=== PATIENT | female | born 1965 | race Caucasian/White ===

== ENCOUNTER 2017-01-15 10:18 | Outpatient (CLI) ==
--- NOTE | 2017-01-15 11:43 | DI ---
Exam: Two x-rays of the chest. Comparison: None available. Reason for exam: Upper respiratory infection. FINDINGS: No pneumothorax, pleural effusion, or focal consolidation. The cardiac silhouette is not enlarged. The imaged osseous structures appear grossly unremarkable without acute fracture. Impression: No acute cardiopulmonary process.
== END 2017-01-15 10:19 | disposition home or self-care (01) ==
LOC: RAD 10:18
PROVIDERS: ATTEND Emergency Medicine
DX: J06.9 Acute upper respiratory infection, unspecified (principal)

== ENCOUNTER 2017-01-21 12:21 | Outpatient (CLI) ==
--- NOTE | 2017-01-22 10:23 | MAMMO ---
EXAM: Bilateral digital screening mammogram (2-D and 3-D) History: Screening Comparison: Bilateral mammogram 05/26/2011 Findings: MLO and CC views of bilateral breasts demonstrate scattered fibroglandular breast parenchy ma. CAD was reviewed by the radiologist. Tomosynthesis was performed. There are no dominant masses , no suspicious microcalcifications and no architectural distortions Impression: Stable negative mammogram. Recommend followup routine screening mammography in 1 year. BIRADS 1
== END 2017-01-21 12:22 | disposition home or self-care (01) ==
LOC: RAD 12:21
PROVIDERS: ATTEND Advanced Practice Midwife
DX: Z12.31 Encounter for screening mammogram for malignant neoplasm of breast (principal)
CPT/HCPCS: 77067

== ENCOUNTER 2017-03-27 13:44 | Emergency (ER) ==
[2017-03-27 14:11] LABS: BASOPHILS % (AUTO) 0.2 % (0.0-3.0); EOSINOPHILS % (AUTO) 0.1 % (0.0-7.0); HEMATOCRIT 40.9 % (37.0-47.0); HEMOGLOBIN 14.2 g/dl (12.0-16.0); IMMATURE GRANULOCYTE % (AUTO) 0.6 % (0.0-5.0); LYMPHOCYTES # (AUTO) 1.2 K/uL (0.60-3.4); LYMPHOCYTES % (AUTO) 9.7 (10.0-50.0); MEAN CORPUSCULAR HEMOGLOBIN 30.7 pg (27.0-31.0); MEAN CORPUSCULAR HGB CONC 34.7 (31.8-35.4); MEAN CORPUSCULAR VOLUME 88.5 fl (81.0-99.0); MONOCYTES # (AUTO) 0.5 K/uL (0.4-2.0); MONOCYTES % (AUTO) 4.2 (0-10); NEUTROPHILS # (AUTO) 10.6 K/ul (2.0-6.9); NEUTROPHILS % (AUTO) 85.2; PLATELET COUNT 325 10^3/uL (140-440); RED BLOOD COUNT 4.62 10^6/ul (4.20-5.40); WHITE BLOOD COUNT 12.44 K/ul (4.6-10.2)
--- NOTE | 2017-03-27 14:18 | DI ---
EXAM: CHEST FRONTAL VIEW HISTORY: Chest pain. COMPARISON: 01/15/2017 FINDINGS: Heart size and mediastinum remain within normal limits. Newly developed left base densit y. Lungs are otherwise clear. No visible pleural fluid, vascular congestion or pneumothorax. No ac king salmon bony deformity. IMPRESSION: Mild density in the left base could represent atelectasis or pneumonia.
[2017-03-27] MEDS ORDERED: TORADOL IVP STA (14:24)
[2017-03-27] MEDS ORDERED: SOLU-MEDROL 125 MG IVP STA (14:24)
[2017-03-27 14:26] VITALS: BP 161/85; TEMP 98.6; BMI 34.7
[2017-03-27 14:34] LABS: ALANINE AMINOTRANSFERASE 28 U/L (12-78); ALBUMIN 3.4 g/dL (3.4-5.0); ALBUMIN/GLOBULIN RATIO 0.92; ALKALINE PHOSPHATASE 76 U/L (42-98); ASPARTATE AMINO TRANSFERASE 16 U/L (15-37); BILIRUBIN,TOTAL 0.41 mg/dL (0.00-1.20); BLOOD UREA NITROGEN 16 mg/dL (7-18); BUN/CREATININE RATIO 22.85; CALCIUM 9.4 mg/dL (8.2-10.2); CARBON DIOXIDE 20 mmol/L (21-32); CHLORIDE 111 mmol/L (98-107); CREATINE KINASE 54 U/L; GLUCOSE 121 mg/dL (70-110); SODIUM 142 mmol/L (136-145); TOTAL PROTEIN 7.1 g/dL (6.4-8.2)
--- NOTE | 2017-03-27 15:09 | ED.PDOC ---
General ED Provider: Dr. MIHIR CLOUD Chief Complaint: Chest Pain Stated Complaint: Patient is a 51 year old female who comes to the ER with onset mild left upper chest pain for the past 3 days. She felt like pulled muscle and has had intermittent pain but became worse last night. Time Seen by Physician: 14:00 Mode of Arrival: Walk-In Information Source: Patient Exam Limitations: No limitations [facility] T[facility] Documentation Reviewed and Agree: Yes Review of Systems - Review Of Systems Constitutional: Reports: No symptoms Eyes: Reports: No symptoms Ears, Nose, Mouth, Throat: Reports: No symptoms Respiratory: Reports: Short of air Cardiac: Reports: Chest pain GI: Reports: No symptoms : Reports: No symptoms Musculoskeletal: Reports: No symptoms Skin: Reports: No symptoms Neurological: Reports: No symptoms Endocrine: Reports: No symptoms Hematologic/Lymphatic: Reports: No symptoms All Other Systems: Reviewed and Negative Past Medical History - Past Medical History Previously Healthy: Yes Endocrine: Reports: None Cardiovascular: Reports: None Respiratory: Reports: None Hematological: Reports: None Gastrointestinal: Reports: None Genitourinary: Reports: None Neuro/Psych: Reports: None Musculoskeletal: Reports: None Cancer: Reports: None 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 - Surgical History General Surgical History: Reports: Hysterectomy, Cholecystectomy - Family History Family History: Reports: None - Social History Smoking Status: Former smoker Hx Substance Use: No Alcohol Screening: Occasionally Physical Exam - Physical Exam Appearance: Ill-appearing, Obese Ill-appearing: Moderate Pain Distress: Severe Neck: Supple Respiratory: Airway patent, Breath sounds clear, Breath sounds equal, Respirations nonlabored Cardiovascular: RRR, Pulses normal, No rub, No murmur GI/: Soft, Nontender, No masses, Bowel sounds normal, No Organomegaly Musculoskeletal: Normal strength, ROM intact, No edema, No calf tenderness Skin: Warm, Dry, Normal color Psychiatric: Anxious Interpretation - Radiology Interpretation Radiology Interpretation By: Radiologist Radiology Results: Positive Exam Interpreted: Portable CXR (mild density at the base could be atelectasis vs Pneumonia ) - Photographs Curator Rate: Normal Rhythm: Sinus - EKG Interpretation Time of EKG #1: 13:53 Rate: Normal Rhythm: Sinus Ectopy: None [place]: NL Interpretation: Normal sinus Critical Care Note - Critical Care Note Total Time (mins): 0 Course - Course Hematology/Chemistry: 03/27/17 14:05 03/27/17 14:05 Orders, Labs, Meds: Lab Review 03/27/17 03/27/17 14:05 14:05 WBC 12.44 H RBC 4.62 Hgb 14.2 Hct 40.9 MCV 88.5 MCH 30.7 MCHC 34.7 RDW Coeff of Reva 12.8 Plt Count 325 Immature Gran % (Auto) 0.6 Neut % (Auto) 85.2 Lymph % (Auto) 9.7 L Wheeler % (Auto) 4.2 Eos % (Auto) 0.1 Baso % (Auto) 0.2 Immature Gran # (Auto) 0.1 Neut # 10.6 H Lymph # 1.2 Wheeler # 0.5 Eos # 0.0 Baso # 0.0 Sodium 142 Potassium 4.0 Chloride 111 H Carbon Dioxide 20 L Anion Gap 15.0 BUN 16 Creatinine 0.70 Estimated GFR (MDRD) 89.00 BUN/Creatinine Ratio 22.85 Glucose 121 H Calcium 9.4 Total Bilirubin 0.41 AST 16 ALT 28 Alkaline Phosphatase 76 Total Creatine Kinase 54 Troponin I < 0.0100 Total Protein 7.1 Albumin 3.4 Globulin 3.7 Albumin/Globulin Ratio 0.92 Orders Category Date Time Status EKG-(ED ONLY) Stat CARDIO 03/27/17 13:57 Completed CBC W/ AUTO DIFF Stat LAB 03/27/17 14:05 Completed COMPREHENSIVE METABOLIC PANEL Stat LAB 03/27/17 14:05 Completed CREATINE KINASE Stat LAB 03/27/17 14:05 Completed TROPONIN I Stat LAB 03/27/17 14:05 Completed Ketorolac Tromethamine [Toradol] MEDS 03/27/17 14:24 Discontinued 30 mg IVP ONCE STA Methylprednisolone Sod Succ/Pf [Solu-Medrol 125 mg] MEDS 03/27/17 14:24 Discontinued 125 mg IVP ONCE STA CHEST, 1V AP ONLY Stat RADS 03/27/17 13:57 Completed Medications Discontinued Medications Generic Name Dose Route Start Last Admin Trade Name Freq PRN Reason Stop Dose Admin Ketorolac Tromethamine 30 mg 03/27/17 14:24 03/27/17 14:32 Toradol IVP 03/27/17 14:25 30 mg ONCE STA Administration Methylprednisolone Sodium Succinate 125 mg 03/27/17 14:24 03/27/17 14:32 Solu-Medrol 125 Mg IVP 03/27/17 14:25 125 mg ONCE STA Administration Vital Signs: Temp Pulse Resp BP Pulse Ox 03/27/17 13:52 98.6 F 79 16 161/85 H 97 SHAYY Risk Score Age >/= 65: No >/= 3 CAD Risk Factors: No Known CAD (Stenosis >/= 50%): No ASA Use in Past 7 Days: No Severe Angina (>/= 2 episodes in 24 hours): No EKG ST Changes >/= 0.5mm: No Postive Cardiac Marker: No SHAYY Total Score: 0 SHAYY Risk Score: Risk Score Odds of by 30D 0 0.1 (0.1-0.2) 1 0.3 (0.2-0.3) 2 0.4 (0.3-0.5) 3 0.7 (0.6-0.9) 4 1.2 (1.0-1.5) 5 2.2 (1.9-2.6) 6 3.0 (2.5-3.6) 7 4.8 (3.8-6.1) Departure - Departure Time of Disposition: 15:11 Disposition: HOME SELF-CARE Discharge Problem: Chest pain, Pleurisy Instructions: Pleurisy (ED) Condition: Fair Pt referred to PMD for follow-up: Yes Additional Instructions: Take antibiotics as prescribed Follow up with PCP in 3 days Prescriptions: Hydrocodone/Acetaminophen [Mentcle 5-325 Tablet] 1 tab PO Q6HR PRN #14 tablet PRN Reason: PAIN Azithromycin [Zithromax] 250 mg PO DIRECTED #6 tablet Methylprednisolone [Medrol Dosepak] 4 mg PO DIRECTED #1 pkg Allergies/Adverse Reactions: Allergies amoxicillin trihydrate [From Augmentin] Allergy (Severe, Verified 03/27/17 14:00 ) Itching all over Patient will notify drugstore potassium clavulanate [From Augmentin] Allergy (Severe, Verified 03/27/17 14:00) Itching all over Patient will notify drugstore contrast dye Allergy (Severe, Uncoded 11/22/13 08:54) problems breathing pt notified to get medical alert necklace gluton Allergy (Severe, Uncoded 11/22/13 08:54) diarrhea pcn Allergy (Severe, Uncoded 09/23/15 14:02) rash SHE REPORTS HER MOTHER WAS ALLERGIC TO PCN AND SHE WAS NEVER GIVEN THE MEDICINE THAT SHE KNOWS OF BUT STATES SHE CAN TAKE AMOXICILLIN Home Medications: Ambulatory Orders Ibuprofen 800 mg PO BID PRN 09/23/15 Azithromycin [Zithromax] 250 mg PO DIRECTED #6 tablet 03/27/17 Hydrocodone/Acetaminophen [Mentcle 5-325 Tablet] 1 tab PO Q6HR PRN #14 tablet 01/03 Methylprednisolone [Medrol Dosepak] 4 mg PO DIRECTED #1 pkg 03/27/17
== END 2017-03-27 15:30 | disposition home or self-care (01) ==
LOC: ED 13:44
DX: R09.1 Pleurisy (principal); R06.02 Shortness of breath
CPT/HCPCS: 36415; 80053; 82550; 84484; 85025; 93005; 93010; 96374; 96375; 99283